=== PATIENT | female | born 1945 | race Caucasian/White ===

== ENCOUNTER 2021-06-19 14:36 | Inpatient (IN) ==
[2021-06-19 16:42] LABS: Basophils # 0.1 K/mcL (0.0-0.2); Basophils % 0.9 %; Eosinophils # 0.2 K/mcL (0.0-0.6); Eosinophils % 1.2 %; Hematocrit 28.7 % (35.3-44.9); Hemoglobin 9.2 g/dL (11.5-15.4); Immature Granulocytes % 2.9 % (0-4); Lymphocytes % 20.3 %; Mean Corpuscular HGB Conc 32.1 g/dL (31.6-35.5); Mean Corpuscular Hemoglobin 32.4 pg (28.0-33.3); Mean Corpuscular Volume 101.1 fL (83.0-100.0); Mean Platelet Volume 9.7 fL (9.4-12.4); Monocytes # 1.5 K/mcL (0.0-1.3); Monocytes % 10.4 %; Neutrophils # 9.5 K/mcL (1.6-8.9); Platelet Count 359 K/mcL (140-400); Red Blood Count 2.84 M/mcL (3.82-4.97); Red Cell Distribution Width 15.3 % (11.5-14.5); Segmented Neutrophils % 64.3 %; White Blood Count 14.7 K/mcL (4.3-11.1)
[2021-06-19 16:48] LABS: Albumin 2.2 g/dL (3.5-5.7); Albumin/Globulin Ratio 0.6 (1.1-2.2); Bilirubin,Total 2.1 mg/dL (0.3-1.0); Calcium 7.9 mg/dL (8.6-10.3); Globulin 3.8 g/dL (2.4-3.5); Potassium 3.4 mEq/L (3.5-5.1)
[2021-06-19 16:49] LABS: INR 1.5; Prothrombin Time 16.2 Seconds (9.4-12.1)
[2021-06-19] MEDS ORDERED: 0.9 % Sodium Chloride 500 ML IVC ONE (17:45)
[2021-06-19] MEDS ORDERED: Pantoprazole 40 MG VIAL IVP ONE (17:45)
[2021-06-19] MEDS ORDERED: Naloxone 0.4 MG/ML INJ IVP PRN (19:59)
[2021-06-19] MEDS ORDERED: Acetaminophen 325 MG TABLET PO PRN (19:59)
[2021-06-19] MEDS ORDERED: Morphine Sulfate ER (12 HR) 15 MG TABLET.ER PO PRN (20:25)
[2021-06-19] MEDS ORDERED: Morphine Sulfate ER (12 HR) 15 MG TABLET.ER PO SCH (21:00)
[2021-06-19] MEDS ORDERED: SODIUM CHLORIDE/NAHCO3/KCL/PEG 4,000 ML SOLN.RECON PO ONE (21:01)
[2021-06-19 21:02] LABS: Hematocrit 24.9 % (35.3-44.9); Hemoglobin 8.2 g/dL (11.5-15.4); Mean Corpuscular HGB Conc 32.9 g/dL (31.6-35.5); Mean Corpuscular Hemoglobin 32.3 pg (28.0-33.3); Mean Platelet Volume 9.2 fL (9.4-12.4); Platelet Count 328 K/mcL (140-400); Red Blood Count 2.54 M/mcL (3.82-4.97); Red Cell Distribution Width 15.3 % (11.5-14.5)
[2021-06-19] MEDS: FLUoxetine 20 MG CAPSULE PO SCH (21:10)
[2021-06-20 06:39] LABS: Hematocrit 24.5 % (35.3-44.9); Hemoglobin 8.1 g/dL (11.5-15.4); Mean Corpuscular HGB Conc 33.1 g/dL (31.6-35.5); Mean Corpuscular Hemoglobin 32.9 pg (28.0-33.3); Mean Corpuscular Volume 99.6 fL (83.0-100.0); Mean Platelet Volume 9.3 fL (9.4-12.4); Platelet Count 294 K/mcL (140-400); Red Blood Count 2.46 M/mcL (3.82-4.97); Red Cell Distribution Width 15.7 % (11.5-14.5); White Blood Count 15.9 K/mcL (4.3-11.1)
[2021-06-20 06:43] LABS: INR 1.6; Prothrombin Time 17.6 Seconds (9.4-12.1)
[2021-06-20 06:55] LABS: % Iron Saturation 55 % (15-50); Iron 84 mcg/dL (50-170); Transferrin 109 mg/dL (203-362)
[2021-06-20 06:57] LABS: Albumin/Globulin Ratio 0.6 (1.1-2.2); Bilirubin,Direct 0.8 mg/dL (0.0-0.2); Bilirubin,Indirect 1.3 mg/dL (0.0-1.0); Bilirubin,Total 2.1 mg/dL (0.3-1.0); Globulin 3.6 g/dL (2.4-3.5); Total Protein 5.6 g/dL (6.4-8.9)
[2021-06-20] MEDS: estradioL 0.5 MG TABLET PO SCH (08:05)
[2021-06-20] MEDS: FLUoxetine 20 MG CAPSULE PO SCH ×3 (08:05→20:58)
[2021-06-20] MEDS: Ondansetron ODT 4 MG TAB.RAPDIS SL PRN (08:05)
[2021-06-20 09:24] LABS: Hepatitis B Surface Antigen Nonreactive (Nonreactive)
[2021-06-20 09:33] LABS: Calcium 7.9 mg/dL (8.6-10.3); Potassium 3.5 mEq/L (3.5-5.1)
[2021-06-20 09:53] LABS: Hepatitis C Virus Antibody Nonreactive (Nonreactive)
[2021-06-20 09:56] LABS: Hepatitis A Antibody IgM Nonreactive (Nonreactive)
[2021-06-20] MEDS: Ringers Solution, Lactated 1,000 ML IVC SCH (11:58)
[2021-06-20] MEDS: Melatonin 3 MG TABLET PO PRN (20:58)
[2021-06-21] MEDS: Ringers Solution, Lactated 1,000 ML IVC SCH (04:33)
[2021-06-21 05:34] LABS: Basophils # 0.1 K/mcL (0.0-0.2); Basophils % 0.6 %; Eosinophils # 0.3 K/mcL (0.0-0.6); Eosinophils % 1.5 %; Hematocrit 21.9 % (35.3-44.9); Hemoglobin 7.1 g/dL (11.5-15.4); Immature Granulocytes % 4.4 % (0-4); Lymphocytes # 3.3 K/mcL (0.6-4.6); Lymphocytes % 19.4 %; Mean Corpuscular HGB Conc 32.4 g/dL (31.6-35.5); Mean Corpuscular Volume 98.6 fL (83.0-100.0); Mean Platelet Volume 9.2 fL (9.4-12.4); Monocytes # 1.7 K/mcL (0.0-1.3); Monocytes % 9.8 %; Neutrophils # 11.1 K/mcL (1.6-8.9); Nucleated Red Blood Cells 0.2 /100 WBC (0); Platelet Count 287 K/mcL (140-400); Red Blood Count 2.22 M/mcL (3.82-4.97); Red Cell Distribution Width 15.8 % (11.5-14.5); Segmented Neutrophils % 64.3 %; White Blood Count 17.2 K/mcL (4.3-11.1)
[2021-06-21 05:56] LABS: Calcium 7.4 mg/dL (8.6-10.3); Potassium 3.6 mEq/L (3.5-5.1)
[2021-06-21] MEDS: estradioL 0.5 MG TABLET PO SCH (07:58)
[2021-06-21] MEDS: FLUoxetine 20 MG CAPSULE PO SCH ×3 (07:58→20:01)
[2021-06-21] MEDS ORDERED: Ringers Solution, Lactated 1,000 ML IVC SCH (08:11)
[2021-06-21 09:19] LABS: Hematocrit 25.3 % (35.3-44.9); Hemoglobin 8.3 g/dL (11.5-15.4)
[2021-06-21 15:26] LABS: Bacteria,Urine Few per hpf (None-Few); Bilirubin,Urine Small (Negative); Blood,Urine Negative (Negative); Clarity,Urine Turbid (Clear); Color,Urine Dark-Yellow (Yellow); Glucose,Urine (UA) Normal (Normal); Hyaline Casts,Urine Many per lpf (None Seen); Ketones,Urine Negative (Negative); Leukocyte Esterase,Urine Negative (Negative); Mucus,Urine Few per lpf (None-Few); Nitrite,Urine Negative (Negative); PH,Urine 5.5 pH Units (5.0-8.0); Protein,Urine 30 mg/dL (Neg-Trace); RBC,Urine 0-3 per hpf (0-3); Specific Gravity,Urine 1.024 (1.010-1.025); Squamous Epithelial Cell,Urine Moderate per hpf (None-Few)
[2021-06-21 16:30] LABS: Protein/Creatinine Ratio,Urine 0.11 mg/mg (0.00-0.20); Sodium, Urine 148.2 mEq/L
[2021-06-21] MEDS ORDERED: SODIUM CHLORIDE/NAHCO3/KCL/PEG 4,000 ML SOLN.RECON PO ONE (17:00)
[2021-06-21 18:42] LABS: Calcium 7.7 mg/dL (8.6-10.3); Potassium 3.8 mEq/L (3.5-5.1)
[2021-06-22 04:05] LABS: Basophils % 0.4 %; Eosinophils % 3.3 %; Hematocrit 22.2 % (35.3-44.9); Hemoglobin 7.1 g/dL (11.5-15.4); Immature Granulocytes % 3.4 % (0-4); Mean Corpuscular Hemoglobin 32.1 pg (28.0-33.3); Mean Corpuscular Volume 100.5 fL (83.0-100.0); Mean Platelet Volume 9.2 fL (9.4-12.4); Monocytes % 7.7 %; Platelet Count 279 K/mcL (140-400); Red Blood Count 2.21 M/mcL (3.82-4.97); Red Cell Distribution Width 15.9 % (11.5-14.5); Segmented Neutrophils % 63.2 %; White Blood Count 15.6 K/mcL (4.3-11.1)
[2021-06-22 04:06] LABS: Basophils # 0.1 K/mcL (0.0-0.2); Eosinophils # 0.5 K/mcL (0.0-0.6); Lymphocytes # 3.4 K/mcL (0.6-4.6); Monocytes # 1.2 K/mcL (0.0-1.3); Neutrophils # 9.9 K/mcL (1.6-8.9); Nucleated Red Blood Cells 0.1 /100 WBC (0)
[2021-06-22 04:25] LABS: Calcium 7.6 mg/dL (8.6-10.3); Potassium 3.5 mEq/L (3.5-5.1)
[2021-06-22] MEDS ORDERED: Albumin 25% 25gram/100mL 25 GM/100 ML IV.SOLN IVC SCH (08:45)
[2021-06-22] MEDS: FLUoxetine 20 MG CAPSULE PO SCH ×4 (10:32→22:42)
[2021-06-22] MEDS: estradioL 0.5 MG TABLET PO SCH (10:32)
[2021-06-22 14:24] LABS: Hematocrit 21.2 % (35.3-44.9); Hemoglobin 6.9 g/dL (11.5-15.4)
[2021-06-22] MEDS: Albumin 25% 25gram/100mL 25 GM/100 ML IV.SOLN IVPB SCH ×2 (16:00→22:51)
[2021-06-22] MEDS ORDERED: 0.9 % Sodium Chloride 250 ML IVC SCH (16:30)
[2021-06-22] MEDS: Ondansetron ODT 4 MG TAB.RAPDIS SL PRN ×2 (20:33→20:39)
[2021-06-22 23:10] LABS: Hematocrit 24.3 % (35.3-44.9); Hemoglobin 7.9 g/dL (11.5-15.4)
[2021-06-23 04:35] LABS: Basophils # 0.1 K/mcL (0.0-0.2); Basophils % 0.4 %; Eosinophils # 0.4 K/mcL (0.0-0.6); Eosinophils % 2.6 %; Hematocrit 22.4 % (35.3-44.9); Hemoglobin 7.4 g/dL (11.5-15.4); Immature Granulocytes % 3.2 % (0-4); Lymphocytes # 2.4 K/mcL (0.6-4.6); Lymphocytes % 17.9 %; Mean Corpuscular Hemoglobin 31.8 pg (28.0-33.3); Mean Corpuscular Volume 96.1 fL (83.0-100.0); Mean Platelet Volume 8.8 fL (9.4-12.4); Monocytes # 0.8 K/mcL (0.0-1.3); Monocytes % 6.1 %; Neutrophils # 9.5 K/mcL (1.6-8.9); Platelet Count 213 K/mcL (140-400); Red Blood Count 2.33 M/mcL (3.82-4.97); Red Cell Distribution Width 16.2 % (11.5-14.5); Segmented Neutrophils % 69.8 %; White Blood Count 13.6 K/mcL (4.3-11.1)
[2021-06-23 04:57] LABS: Potassium 3.4 mEq/L (3.5-5.1)
[2021-06-23] MEDS: Albumin 25% 25gram/100mL 25 GM/100 ML IV.SOLN IVPB SCH ×3 (06:24→22:59)
[2021-06-23] MEDS: estradioL 0.5 MG TABLET PO SCH (09:24)
[2021-06-23] MEDS: FLUoxetine 20 MG CAPSULE PO SCH ×3 (09:24→23:00)
[2021-06-23 17:45] LABS: Glucose,Peritoneal Fluid 99 mg/dL (No Ref Range); LDH,Peritoneal Fluid 31 Units/L (No Ref Range); Total Protein,Peritoneal Fluid < 2.0 g/dL
[2021-06-23 17:52] LABS: RBC,Peritoneal Fluid < 2000 RBC/mcL
[2021-06-23 17:53] LABS: Appearance of Peritoneal Fl CLEAR (Clear)
[2021-06-23 19:20] LABS: Basophils,Peritoneal Fluid 0 %; Eosinophils,Peritoneal Fluid 0 %
[2021-06-24 02:50] LABS: Basophils % 0.3 %; Eosinophils # 0.2 K/mcL (0.0-0.6); Eosinophils % 2.5 %; Hematocrit 21.3 % (35.3-44.9); Immature Granulocytes % 2.4 % (0-4); Lymphocytes # 1.8 K/mcL (0.6-4.6); Lymphocytes % 19.8 %; Mean Corpuscular HGB Conc 32.9 g/dL (31.6-35.5); Mean Corpuscular Volume 97.3 fL (83.0-100.0); Mean Platelet Volume 9.2 fL (9.4-12.4); Monocytes # 0.8 K/mcL (0.0-1.3); Monocytes % 8.1 %; Neutrophils # 6.2 K/mcL (1.6-8.9); Platelet Count 180 K/mcL (140-400); Red Blood Count 2.19 M/mcL (3.82-4.97); Red Cell Distribution Width 16.3 % (11.5-14.5); Segmented Neutrophils % 66.9 %; White Blood Count 9.3 K/mcL (4.3-11.1)
[2021-06-24 03:01] LABS: Potassium 3.1 mEq/L (3.5-5.1)
[2021-06-24 04:46] LABS: Albumin 2.9 g/dL (3.5-5.7)
[2021-06-24] MEDS: Albumin 25% 25gram/100mL 25 GM/100 ML IV.SOLN IVPB SCH (06:33)
[2021-06-24] MEDS: estradioL 0.5 MG TABLET PO SCH (09:06)
[2021-06-24] MEDS: FLUoxetine 20 MG CAPSULE PO SCH ×3 (09:07→20:05)
[2021-06-24 11:03] LABS: Hematocrit 23.3 % (35.3-44.9); Hemoglobin 7.7 g/dL (11.5-15.4)
[2021-06-24] MEDS: *HR* OxyCODONE Immed Rel 5 MG TABLET PO PRN (16:49)
[2021-06-25] MEDS: *HR* OxyCODONE Immed Rel 5 MG TABLET PO PRN ×3 (00:15→21:06)
[2021-06-25 06:58] LABS: Basophils # 0.1 K/mcL (0.0-0.2); Basophils % 0.6 %; Eosinophils # 0.2 K/mcL (0.0-0.6); Eosinophils % 2.3 %; Hematocrit 23.5 % (35.3-44.9); Hemoglobin 7.9 g/dL (11.5-15.4); Immature Granulocytes % 3.7 % (0-4); Lymphocytes # 2.1 K/mcL (0.6-4.6); Lymphocytes % 20.5 %; Mean Corpuscular HGB Conc 33.6 g/dL (31.6-35.5); Mean Corpuscular Hemoglobin 32.2 pg (28.0-33.3); Mean Corpuscular Volume 95.9 fL (83.0-100.0); Monocytes % 9.1 %; Neutrophils # 6.7 K/mcL (1.6-8.9); Platelet Count 186 K/mcL (140-400); Red Blood Count 2.45 M/mcL (3.82-4.97); Segmented Neutrophils % 63.8 %; White Blood Count 10.4 K/mcL (4.3-11.1)
[2021-06-25 07:21] LABS: Potassium 3.4 mEq/L (3.5-5.1)
[2021-06-25] MEDS: FLUoxetine 20 MG CAPSULE PO SCH ×3 (08:19→21:06)
[2021-06-25] MEDS: estradioL 0.5 MG TABLET PO SCH (08:19)
[2021-06-25] MEDS ORDERED: Lidocaine -MPF 2% 5 ML VIAL ONE (14:46)
[2021-06-25] MEDS ORDERED: *HR* Propofol 200 MG/20 ML VIAL IVP ONE ×2 (14:46→15:26)
[2021-06-25] MEDS: Lactulose Oral Soln 20 GM/30 ML UDC PO SCH (21:06)
[2021-06-25] MEDS: Melatonin 3 MG TABLET PO PRN (21:06)
[2021-06-26 06:06] LABS: Eosinophils # 0.4 K/mcL (0.0-0.6); Hematocrit 25.2 % (35.3-44.9); Hemoglobin 7.9 g/dL (11.5-15.4); Mean Corpuscular HGB Conc 31.3 g/dL (31.6-35.5); Mean Corpuscular Hemoglobin 30.9 pg (28.0-33.3); Mean Corpuscular Volume 98.4 fL (83.0-100.0); Platelet Count 195 K/mcL (140-400); Red Blood Count 2.56 M/mcL (3.82-4.97); Red Cell Distribution Width 15.9 % (11.5-14.5); White Blood Count 10.4 K/mcL (4.3-11.1)
[2021-06-26 06:26] LABS: Lymphocytes # 3.1 K/mcL (0.6-4.6); Monocytes # 0.6 K/mcL (0.0-1.3); Neutrophils # 6.2 K/mcL (1.6-8.9)
[2021-06-26 06:27] LABS: Platelet Estimate Normal (Normal)
[2021-06-26 06:28] LABS: Albumin 2.5 g/dL (3.5-5.7); Albumin/Globulin Ratio 1.3 (1.1-2.2); Bilirubin,Total 2.9 mg/dL (0.3-1.0); Calcium 7.8 mg/dL (8.6-10.3); Globulin 1.9 g/dL (2.4-3.5); Potassium 3.8 mEq/L (3.5-5.1); Total Protein 4.4 g/dL (6.4-8.9)
[2021-06-26] MEDS ORDERED: Lidocaine -MPF 2% 5 ML VIAL ONE (08:02)
[2021-06-26] MEDS: Lactulose Oral Soln 20 GM/30 ML UDC PO SCH ×2 (10:53→20:47)
[2021-06-26] MEDS: FLUoxetine 20 MG CAPSULE PO SCH ×3 (10:53→20:47)
[2021-06-26] MEDS: estradioL 0.5 MG TABLET PO SCH (10:53)
[2021-06-26 19:08] LABS: Fluid Source for Albumin PERIT/ASCITES
[2021-06-27] MEDS: *HR* OxyCODONE Immed Rel 5 MG TABLET PO PRN ×2 (01:17→12:56)
[2021-06-27] MEDS: estradioL 0.5 MG TABLET PO SCH (08:56)
[2021-06-27] MEDS: Lactulose Oral Soln 20 GM/30 ML UDC PO SCH ×2 (08:56→20:51)
[2021-06-27] MEDS: FLUoxetine 20 MG CAPSULE PO SCH ×3 (08:56→20:51)
[2021-06-27 09:32] LABS: Basophils # 0.1 K/mcL (0.0-0.2); Basophils % 0.8 %; Eosinophils # 0.5 K/mcL (0.0-0.6); Eosinophils % 4.1 %; Hematocrit 25.8 % (35.3-44.9); Hemoglobin 8.3 g/dL (11.5-15.4); Mean Corpuscular HGB Conc 32.2 g/dL (31.6-35.5); Mean Corpuscular Hemoglobin 31.4 pg (28.0-33.3); Mean Corpuscular Volume 97.7 fL (83.0-100.0); Mean Platelet Volume 8.9 fL (9.4-12.4); Monocytes # 1.3 K/mcL (0.0-1.3); Monocytes % 10.8 %; Neutrophils # 7.2 K/mcL (1.6-8.9); Platelet Count 189 K/mcL (140-400); Red Blood Count 2.64 M/mcL (3.82-4.97); Red Cell Distribution Width 15.8 % (11.5-14.5); Segmented Neutrophils % 62.3 %; White Blood Count 11.6 K/mcL (4.3-11.1)
[2021-06-27 09:51] LABS: Calcium 7.8 mg/dL (8.6-10.3); Potassium 3.9 mEq/L (3.5-5.1)
[2021-06-28] MEDS: Lactulose Oral Soln 20 GM/30 ML UDC PO SCH ×2 (08:12→20:28)
[2021-06-28] MEDS: estradioL 0.5 MG TABLET PO SCH (08:12)
[2021-06-28] MEDS: FLUoxetine 20 MG CAPSULE PO SCH ×3 (08:12→20:28)
[2021-06-28 09:04] LABS: Hematocrit 24.5 % (35.3-44.9); Mean Corpuscular HGB Conc 32.7 g/dL (31.6-35.5); Mean Corpuscular Hemoglobin 31.4 pg (28.0-33.3); Mean Corpuscular Volume 96.1 fL (83.0-100.0); Mean Platelet Volume 8.9 fL (9.4-12.4); Platelet Count 187 K/mcL (140-400); Red Blood Count 2.55 M/mcL (3.82-4.97); Red Cell Distribution Width 15.4 % (11.5-14.5); White Blood Count 12.5 K/mcL (4.3-11.1)
[2021-06-28 09:26] LABS: Calcium 7.8 mg/dL (8.6-10.3); Potassium 3.9 mEq/L (3.5-5.1)
[2021-06-28 09:28] LABS: Eosinophils # 0.3 K/mcL (0.0-0.6)
[2021-06-28 09:30] LABS: Monocytes # 0.8 K/mcL (0.0-1.3); Neutrophils # 9.4 K/mcL (1.6-8.9); Platelet Estimate Normal (Normal)
[2021-06-29 02:45] LABS: Albumin 2.1 g/dL (3.5-5.7); Albumin/Globulin Ratio 0.8 (1.1-2.2); Bilirubin,Total 2.1 mg/dL (0.3-1.0); Calcium 7.8 mg/dL (8.6-10.3); Globulin 2.5 g/dL (2.4-3.5); Potassium 4.1 mEq/L (3.5-5.1); Total Protein 4.6 g/dL (6.4-8.9)
[2021-06-29 02:48] LABS: Hematocrit 24.7 % (35.3-44.9); Hemoglobin 7.8 g/dL (11.5-15.4); Mean Corpuscular HGB Conc 31.6 g/dL (31.6-35.5); Mean Corpuscular Hemoglobin 30.8 pg (28.0-33.3); Mean Corpuscular Volume 97.6 fL (83.0-100.0); Platelet Count 176 K/mcL (140-400); Red Blood Count 2.53 M/mcL (3.82-4.97); Red Cell Distribution Width 15.6 % (11.5-14.5); White Blood Count 13.4 K/mcL (4.3-11.1)
[2021-06-29 04:18] LABS: Lymphocytes # 2.1 K/mcL (0.6-4.6); Monocytes # 0.7 K/mcL (0.0-1.3); Neutrophils # 10.6 K/mcL (1.6-8.9); Platelet Estimate Normal (Normal)
[2021-06-29] MEDS: estradioL 0.5 MG TABLET PO SCH (09:11)
[2021-06-29] MEDS: Lactulose Oral Soln 20 GM/30 ML UDC PO SCH ×2 (09:11→21:02)
[2021-06-29] MEDS: FLUoxetine 20 MG CAPSULE PO SCH ×3 (09:12→21:02)
[2021-06-29] MEDS: Ondansetron ODT 4 MG TAB.RAPDIS SL PRN (11:26)
[2021-06-30 06:25] LABS: Basophils # 0.1 K/mcL (0.0-0.2); Basophils % 0.9 %; Eosinophils # 0.4 K/mcL (0.0-0.6); Eosinophils % 2.4 %; Hematocrit 26.8 % (35.3-44.9); Hemoglobin 8.8 g/dL (11.5-15.4); Immature Granulocytes % 5.8 % (0-4); Lymphocytes # 2.9 K/mcL (0.6-4.6); Lymphocytes % 19.7 %; Mean Corpuscular HGB Conc 32.8 g/dL (31.6-35.5); Mean Corpuscular Hemoglobin 32.6 pg (28.0-33.3); Mean Corpuscular Volume 99.3 fL (83.0-100.0); Mean Platelet Volume 9.1 fL (9.4-12.4); Monocytes % 11.1 %; Neutrophils # 8.9 K/mcL (1.6-8.9); Platelet Count 236 K/mcL (140-400); Red Cell Distribution Width 15.6 % (11.5-14.5); Segmented Neutrophils % 60.1 %; White Blood Count 14.8 K/mcL (4.3-11.1)
[2021-06-30 06:27] LABS: Monocytes # 1.6 K/mcL (0.0-1.3); Platelet Estimate Normal (Normal)
[2021-06-30 06:42] LABS: Albumin 2.3 g/dL (3.5-5.7); Albumin/Globulin Ratio 0.8 (1.1-2.2); Bilirubin,Total 2.4 mg/dL (0.3-1.0); Calcium 7.9 mg/dL (8.6-10.3); Globulin 2.8 g/dL (2.4-3.5); Potassium 4.5 mEq/L (3.5-5.1); Total Protein 5.1 g/dL (6.4-8.9)
[2021-06-30] MEDS: FLUoxetine 20 MG CAPSULE PO SCH ×3 (08:51→21:03)
[2021-06-30] MEDS: estradioL 0.5 MG TABLET PO SCH (08:52)
[2021-06-30] MEDS: Lactulose Oral Soln 20 GM/30 ML UDC PO SCH ×2 (08:52→21:03)
[2021-06-30 16:26] LABS: Glucose,Peritoneal Fluid 113 mg/dL (No Ref Range); LDH,Peritoneal Fluid 45 Units/L (No Ref Range); Total Protein,Peritoneal Fluid < 2.0 g/dL
[2021-06-30 16:57] LABS: RBC,Peritoneal Fluid < 2000 RBC/mcL
[2021-06-30 17:01] LABS: Basophils,Peritoneal Fluid 0 %; Eosinophils,Peritoneal Fluid 0 %
[2021-06-30 17:02] LABS: Appearance of Peritoneal Fl CLEAR (Clear)
[2021-06-30] MEDS: Albumin 25% 25gram/100mL 25 GM/100 ML IV.SOLN IVPB SCH (17:48)
[2021-06-30 18:08] LABS: Hepatitis B Core IgM Nonreactive (Nonreactive)
[2021-07-01] MEDS: Albumin 25% 25gram/100mL 25 GM/100 ML IV.SOLN IVPB SCH ×2 (01:37→09:12)
[2021-07-01 09:24] LABS: Basophils # 0.1 K/mcL (0.0-0.2); Basophils % 0.9 %; Eosinophils # 0.2 K/mcL (0.0-0.6); Eosinophils % 1.6 %; Hematocrit 22.8 % (35.3-44.9); Hemoglobin 7.4 g/dL (11.5-15.4); Immature Granulocytes % 4.1 % (0-4); Lymphocytes % 19.1 %; Mean Corpuscular HGB Conc 32.5 g/dL (31.6-35.5); Mean Corpuscular Hemoglobin 31.2 pg (28.0-33.3); Mean Corpuscular Volume 96.2 fL (83.0-100.0); Mean Platelet Volume 9.3 fL (9.4-12.4); Monocytes # 1.2 K/mcL (0.0-1.3); Monocytes % 11.5 %; Neutrophils # 6.5 K/mcL (1.6-8.9); Platelet Count 185 K/mcL (140-400); Red Blood Count 2.37 M/mcL (3.82-4.97); Red Cell Distribution Width 15.8 % (11.5-14.5); Segmented Neutrophils % 62.8 %; White Blood Count 10.4 K/mcL (4.3-11.1)
[2021-07-01 10:02] LABS: Albumin 2.8 g/dL (3.5-5.7); Albumin/Globulin Ratio 1.3 (1.1-2.2); Bilirubin,Total 3.1 mg/dL (0.3-1.0); Calcium 8.1 mg/dL (8.6-10.3); Globulin 2.2 g/dL (2.4-3.5); Potassium 4.4 mEq/L (3.5-5.1)
[2021-07-01] MEDS: Lactulose Oral Soln 20 GM/30 ML UDC PO SCH (10:51)
[2021-07-01] MEDS: estradioL 0.5 MG TABLET PO SCH (10:51)
[2021-07-01] MEDS: FLUoxetine 20 MG CAPSULE PO SCH (10:51)
[2021-07-01 13:28] LABS: Influenza A PCR Negative (Negative); Influenza B PCR Negative (Negative); Resp. Syncytial Virus PCR Negative (Negative)
[2021-07-01 13:29] LABS: SARS-CoV-2 by PCR (In House) Negative (Negative)
[2021-07-01 14:43] VITALS: BP 100/58; PULSE 77; TEMP 98; O2SAT 96
[2021-07-02 23:48] LABS: Fluid Source for Albumin ASCITES FLUID
== END 2021-07-01 15:11 | disposition other institution (70) | DRG 378 ==
LOC: 3ANU 14:36 → EMEROOARM 14:36 → SUATTDRO 19:35 → 3ANU 20:20 → SUATTDRO 06-22 12:52
PROVIDERS: ADMIT Internal Medicine; ATTEND Family Medicine
PROC: ENDOORB (2021-06-25 13:00)